=== PATIENT | male | born 2000 | race Caucasian/White ===

== ENCOUNTER 2018-05-04 11:58 | Emergency (ER) | payer OTHER ==
--- NOTE | 2018-05-04 12:16 | ER Report ---
History and Physical Time Seen By MD: 12:16 Hx. of Stated Complaint: chest pain HPI/ROS CHIEF COMPLAINT: Chest pain HISTORY OF PRESENT ILLNESS: 17-year-old male patient presents to emergency room with complaint of chest pain. Patient states he's been having this since this morning. He states he woke up this morning and was having some discomfort in his back. He states that he walked into the bathroom and the bathroom. He states that on his way back then he started having chest pain. Patient states that it hurts to take a deep breath. He denies having any nausea, vomiting or diarrhea. Patient states he has not taken any medication for this. He states he was just started her that he felt that this was something emergent and did want to be evaluated for. REVIEW OF SYSTEMS: Respiratory: No cough, no dyspnea. Cardiovascular: As noted above Gastrointestinal: No vomiting, no abdominal pain. Musculoskeletal: No back pain. Allergies: Coded Allergies: No Known Allergies (Verified Allergy, Unknown, 05/04/18) Home Meds Active Scripts Cyclobenzaprine Hcl (CYCLOBENZAPRINE HCL) 10 Mg Tablet, 10 MG PO TID PRN for MUSCLE SPASMS, #9 TAB Prov:CAROLYNE OLIVA NIKITA 05/04/18 Past Medical/Surgical History Patient has no pertinent medical or surgical history. Reviewed Nurses Notes: Yes Hx Substance Use Disorder: No Hx Alcohol Use: No Constitutional Vital Sign - Last 24 Hours 05/04/18 05/04/18 05/04/18 05/04/18 12:05 12:10 12:30 12:58 Temp 97.2 Pulse 87 68 Resp 18 9 B/P (MAP) 145/94 (111) 145/94 138/104 (115) Pulse Ox 95 93 O2 Delivery Room Air 05/04/18 13:00 B/P (MAP) 128/82 (97) Physical Exam General Appearance: The patient is alert, has no immediate need for airway protection and no current signs of toxicity. Respiratory: Chest is non tender, lungs are clear to auscultation. Cardiac: regular rate and rhythm Gastrointestinal: Abdomen is soft and non tender, no masses, bowel sounds normal. Musculoskeletal: Neck: Neck is supple and non tender. Back: Patient does have some tenderness to the upper back. Extremities have full range of motion and are non tender. Skin: No rashes or lesions. DIFFERENTIAL DIAGNOSIS: After history and physical exam differential diagnosis was considered for chest pain including but not limited to myocardial ischemia, pericarditis pulmonary embolus, chest wall pain, pleural inflammation and pulmonary infectious causes. Included in the differential is muscle spasms. Medical Decision Making Data Points Result Diagram: 05/04/18 1215 05/04/18 1215 Laboratory Hematology Test 05/04/18 12:15 Red Blood Count 6.00 M/uL (4.00-5.60) Mean Corpuscular Volume 88.3 fL (80.0-96.0) Mean Corpuscular Hemoglobin 31.1 pg (26.0-33.0) Mean Corpuscular Hemoglobin Concent 35.2 g/dL (32.0-36.0) Red Cell Distribution Width 12.6 % (11.5-14.5) Mean Platelet Volume 6.8 fL (7.2-11.1) Neutrophils (%) (Auto) 50.7 % (39.4-72.5) Lymphocytes (%) (Auto) 38.3 % (17.6-49.6) Monocytes (%) (Auto) 8.5 % (4.1-12.4) Eosinophils (%) (Auto) 2.0 % (0.4-6.7) Basophils (%) (Auto) 0.5 % (0.3-1.4) Nucleated RBC Relative Count (auto) 0.2 /100WBC Neutrophils # (Auto) 3.3 K/uL (2.0-7.4) Lymphocytes # (Auto) 2.5 K/uL (1.3-3.6) Monocytes # (Auto) 0.6 K/uL (0.3-1.0) Eosinophils # (Auto) 0.1 K/uL (0.0-0.5) Basophils # (Auto) 0.0 K/uL (0.0-0.1) Nucleated RBC Absolute Count (auto) 0.01 K/uL D-Dimer Quantitative (PE/DVT) < 0.27 ug/ml (0-0.50) Sodium Level 141 mmol/L (137-145) Potassium Level 3.8 mmol/L (3.5-5.0) Chloride Level 103 mmol/L (98-107) Carbon Dioxide Level 27 mmol/L (22-30) Blood Urea Nitrogen 15 mg/dl (9-21) Creatinine 0.90 mg/dl (0.66-1.25) Glomerular Filtration Rate Calc > 60.0 Random Glucose 98 mg/dl (75-110) Calcium Level 9.8 mg/dl (8.4-10.2) Total Bilirubin 2.2 mg/dl (0.2-1.3) Aspartate Amino Transf (AST/SGOT) 28 U/L (0-35) Alanine Aminotransferase (ALT/SGPT) 43 U/L (0-56) Alkaline Phosphatase 61 U/L (0-126) Troponin I < 0.012 ng/ml Total Protein 8.8 g/dl (6.3-8.2) Albumin 5.3 g/dl (3.5-5.0) Lipase 139 U/L (23-300) Chemistry Test 05/04/18 12:15 White Blood Count 6.5 k/uL (4.5-11.0) Red Blood Count 6.00 M/uL (4.00-5.60) Hemoglobin 18.6 g/dL (14.0-18.0) Hematocrit 53.0 % (42.0-52.0) Mean Corpuscular Volume 88.3 fL (80.0-96.0) Mean Corpuscular Hemoglobin 31.1 pg (26.0-33.0) Mean Corpuscular Hemoglobin Concent 35.2 g/dL (32.0-36.0) Red Cell Distribution Width 12.6 % (11.5-14.5) Platelet Count 210 K/uL (150-450) Mean Platelet Volume 6.8 fL (7.2-11.1) Neutrophils (%) (Auto) 50.7 % (39.4-72.5) Lymphocytes (%) (Auto) 38.3 % (17.6-49.6) Monocytes (%) (Auto) 8.5 % (4.1-12.4) Eosinophils (%) (Auto) 2.0 % (0.4-6.7) Basophils (%) (Auto) 0.5 % (0.3-1.4) Nucleated RBC Relative Count (auto) 0.2 /100WBC Neutrophils # (Auto) 3.3 K/uL (2.0-7.4) Lymphocytes # (Auto) 2.5 K/uL (1.3-3.6) Monocytes # (Auto) 0.6 K/uL (0.3-1.0) Eosinophils # (Auto) 0.1 K/uL (0.0-0.5) Basophils # (Auto) 0.0 K/uL (0.0-0.1) Nucleated RBC Absolute Count (auto) 0.01 K/uL D-Dimer Quantitative (PE/DVT) < 0.27 ug/ml (0-0.50) Glomerular Filtration Rate Calc > 60.0 Calcium Level 9.8 mg/dl (8.4-10.2) Total Bilirubin 2.2 mg/dl (0.2-1.3) Aspartate Amino Transf (AST/SGOT) 28 U/L (0-35) Alanine Aminotransferase (ALT/SGPT) 43 U/L (0-56) Alkaline Phosphatase 61 U/L (0-126) Troponin I < 0.012 ng/ml Total Protein 8.8 g/dl (6.3-8.2) Albumin 5.3 g/dl (3.5-5.0) Lipase 139 U/L (23-300) Coagulation Test 05/04/18 12:15 D-Dimer Quantitative (PE/DVT) < 0.27 ug/ml EKG/Imaging Imaging Technique: CHEST PA LAT HISTORY: Chest pain COMPARISON: None available Findings: The lungs are clear. No pleural effusion or pneumothorax. The cardiomediastinal silhouette is normal. Impression: 1. No acute cardiopulmonary process. Report Dictated By: Aubrey Patel DO at 05/04/2018 12:51 PM Report E-Signed By: Aubrey Patel DO at 05/04/2018 12:52 PM ED Course/Re-evaluation ED Course Patient is admitted and examined, history and physical were obtained. Differenti al diagnoses were considered. I examination lungs are clear, heart is regular, abdomen soft nontender. Patient had no obvious tenderness to the chest, he did have some discomfort with palpation to the upper back. A CBC, CMP, chest x-ray, EKG, troponin, d-dimer were done. Lab results were unremarkable. Patient did have a slightly elevated liver improvement of 2.2. Chest x-ray showed no acute findings. I discussed the findings with the patient and his significant other. I informed him that I believe this is likely muscle spasms caused from the back is actually causing the chest muscles to spasm. I discussed this with the patient. We will go ahead and discharge patient home at this time. He is follow-up with his primary care provider next week. He is return to emergency room if condition worsens. Patient verbalized understanding and agreement with plan. Decision to Disposition Date: May 04, 2018 Decision to Disposition Time: 13:11 Depart Departure Latest Vital Signs Vital Signs Date Time Temp Pulse Resp B/P (MAP) Pulse Ox O2 Delivery O2 Flow Rate FiO2 05/04/18 13:00 128/82 (97) 05/04/18 12:58 68 9 93 05/04/18 12:10 97.2 Room Air Impression: Primary Impression: Chest pain Additional Impression: Spasm of thoracic back muscle Condition: Improved Disposition: HOME OR SELF-CARE New Scripts Cyclobenzaprine Hcl (CYCLOBENZAPRINE HCL) 10 Mg Tablet 10 MG PO TID PRN for MUSCLE SPASMS, #9 TAB Prov: CAROLYNE OLIVA 05/04/18 Patient Instructions: Muscle Spasm (ED) Additional Instructions: Limit activity by pain. Increase low impact aerobic exercise; such as walking. Take Tylenol or Ibuprofen as needed for pain. Follow up with [facility] in the next week. Return to the ER if condition worsens. Problem Qualifiers Primary Impression: Chest pain Chest pain type: other chest pain Qualified Codes: R07.89 - Other chest pain CAROLYNE OLIVA May 04, 2018 12:16
[2018-05-04] MEDS ORDERED: ASPIRIN 81 MG CHEW PO ONE (12:20)
[2018-05-04] MEDS ORDERED: NS(*) 0.9% 1000 ML BAG 1,000 ML IV ONE (12:20)
[2018-05-04 12:31] LABS: PLATELET COUNT, AUTOMATED 210 K/uL (150-450)
--- NOTE | 2018-05-04 12:56 | RADIOLOGY IMAGING REPORT ---
FACILITY: [facility] - [place] PATIENT NAME: Reinier Elam : 2000 MR: [id number] V: [id number] EXAM DATE: ORDERING PHYSICIAN: CAROLYNE OLIVA TECHNOLOGIST: Location: [facility] - [place] Patient: Reinier Elam : 2000 Visit/Account:[id number] Date of Sevice: 05/04/2018 Technique: CHEST PA LAT HISTORY: Chest pain COMPARISON: None available Findings: The lungs are clear. No pleural effusion or pneumothorax. The cardiomediastinal silhouett e is normal. Impression: 1. No acute cardiopulmonary process. Report Dictated By: Aubrey Patel DO at 05/04/2018 12:51 PM Report E-Signed By: Aubrey Patel DO at 05/04/2018 12:52 PM WSN:[id number]
[2018-05-04 13:00] VITALS: BP 128/82
[2018-05-04] MEDS ORDERED: CYCL10TA29 PO (13:08)
--- NOTE | 2018-05-04 13:28 | EKG ---
FACILITY: [facility] [place] PATIENT NAME: YOUSUF IBRAHIM : [id number] MR: [id number] V: [id number] EXAM DATE: ORDERING PHYSICIAN: CAROLYNE OLIVA TECHNOLOGIST: ELIZABETH Test Reason : CP Blood Pressure : / mmHG Vent. Rate : 087 BPM Atrial Rate : 087 BPM P-R Int : 144 ms QRS Dur : 098 ms QT Int : 366 ms P-R-T Axes : 070 083 069 degrees QTc Int : 440 ms Normal sinus rhythm Normal ECG No previous ECGs available Confirmed by ANDIE TREJO ([id number]) on 05/05/2018 2:08:54 AM Referred By: ISSA Confirmed By:ANDIE TREJO
== END 2018-05-04 13:18 | disposition home or self-care (01) ==
LOC: EDBD 11:58 → ER 12:15
DX: M62.830 Muscle spasm of back (principal); R79.89 Other specified abnormal findings of blood chemistry; R07.9 Chest pain, unspecified
CPT/HCPCS: 71046; 83690; 84484; 85025; 85379; 93005; 99284; J7030; 82040; 82247; 82310; 82374; 82435; 82565; 82947; 84075; 84132; 84155; 84295; 84450; 84460; 84520